=== PATIENT | male | born 1975 | race Caucasian/White ===

== ENCOUNTER 2016-06-11 04:18 | Day surgery (SDC) | payer BC ==
[2016-06-05 10:28] LABS: BASOPHILS 0.6 %; BASOPHILS ABSOLUTE 0.04 10/3/uL (0.0-0.16); EOSINOPHILS 2.9 %; EOSINOPHILS ABSOLUTE 0.19 10/3/uL (0.0-0.53); HEMATOCRIT 43.6 % (40.0-51.0); HEMOGLOBIN 14.7 g/dL (13.6-17.8); LYMPHOCYTES 31.7 %; LYMPHOCYTES ABSOLUTE 2.08 10/3/uL (0.67-4.30); MEAN CORPUS HGB CONC 33.7 g/dL (32.0-36.0); MEAN CORPUSCULAR HEMOGLOB 31.7 pg (26.0-34.0); MEAN CORPUSCULAR VOLUME 94.2 fL (80-100); MEAN PLATELET VOLUME 9.2 fL (9.2-13.0); MONOCYTES ABSOLUTE 0.46 10/3/uL (0.21-1.20); NEUTROPHILS 57.8 %; NEUTROPHILS ABSOLUTE 3.79 10/3/uL (2.02-8.40); PLATELET COUNT 204 10/3/uL (150-400); RBC DISTRIBUTION WIDTH 13.6 % (12.0-16.0); RED CELL COUNT 4.63 10/6/uL (4.7-6.1); WHITE BLOOD CELLS 6.6 10/3/uL (4.5-10.5)
[2016-06-05 10:30] LABS: MANUAL DIFF NO %
--- NOTE | ~2016-06-11 | OP ---
Record Of Operation [facility] [address] [place]. [address] NAME: KELSEA SANTOS : 75 STATUS : REG [facility] [place] PAT#: [id number] AGE: 40 ADM/REG DATE : 06/11/16 MR#: [id number] REPORT SERV DATE: 06/11/16 DICTATED BY: TOAN GRAVES DATE: 06/11/16 REPORT STATUS : Draft TRANSCRIBED BY: MODL DATE: 06/11/16 DATE OF PROCEDURE: 06/11/2016 PREOPERATIVE DIAGNOSIS: Symptomatic right inguinal hernia. POSTOPERATIVE DIAGNOSIS: Symptomatic indirect right inguinal hernia. OPERATION PERFORMED: Laparoscopic preperitoneal right inguinal hernia repair with Bard 3DMax mesh. SURGEON: Toan Graves M.D. ANESTHESIA: General. ESTIMATED BLOOD LOSS: Less than 10 mL. IV FLUIDS: Adequate. INDICATION FOR PROCEDURE: Mr. Santos is a 40-year-old gentleman who has developed a symptomatic right inguinal hernia. He has requested repair. Risks and benefits of the procedure and types of repair were discussed. He has opted for a laparoscopic preperitoneal repair. DESCRIPTION OF OPERATION: After appropriate sedation, the patient was prepped and draped in proper sterile fashion. The skin and subcutaneous tissues below the umbilicus were infiltrated with local anesthesia. A similar incision was made below the umbilicus. The subcutaneous tissues were incised down to anterior rectus fascia. The anterior rectus fascia was incised transversely. The right rectus muscle was elevated and a Gabriela clamp was used to dissect into the preperitoneal space. A dissecting balloon was placed in the preperitoneal space and insufflated. This balloon was removed. A structural balloon was placed in the preperitoneal space and insufflated to 15 mmHg. We then placed two lower midline 5 mm trocars under direct visualization after obtaining local anesthesia in standard fashion. He had a very good dissection. We dissected out the wispy tissues around the Hesselbach's triangle. There was no evidence of a direct inguinal hernia. We dissected out the spermatic cord. There was a large cord lipoma entering a dilated internal ring. This was dissected out and reduced. There was no evidence of peritoneal sac entering the internal ring. At this point, we had excellent visualization of our anatomy. A piece of Bard 3DMax mesh was cut to fit with a slit on the inferior aspect and fashioned around the spermatic cord. It was secured to Deyvi's ligament using the Securestrap, placed another tack superiorly and medially. A third tack was placed superiorly and laterally. This gave us good coverage of Hesselbach's triangle as well as a reconstructed internal ring. We instilled 20 mL of Marcaine into the preperitoneal space. We desufflated the preperitoneal space under direct visualization, watching the mesh lay up against the abdominal wall. Trocars were then removed. The fascia was closed using 0 Vicryl suture. The skin was closed using a running 4-0 Monocryl suture. Steri-Strips and dressings were then placed. The patient was taken to the recovery room in satisfactory condition. Record Of Operation [address] [place]. [address] NAME: KELSEA SANTOS : 75 STATUS : REG [facility] [place] PAT#: [id number] AGE: 40 ADM/REG DATE : 06/11/16 MR#: [id number] REPORT SERV DATE: 06/11/16 DICTATED BY: TOAN GRAVES DATE: 06/11/16 REPORT STATUS : Draft TRANSCRIBED BY: URIAH DATE: 06/11/16 NOLAN/URIAH Toan Graves M.D. / [id number] CC: Toan Graves M.D.
== END 2016-06-11 13:32 | disposition home or self-care (01) ==
LOC: SDC 04:18
PROVIDERS: Specialist
PROC: 0YU54JZ Supplement Right Inguinal Region with Synthetic Substitute, Percutaneous Endoscopic Approach (ICD-10-PCS; principal; 2016-06-11 05:45)
DX: K40.90 Unilateral inguinal hernia, without obstruction or gangrene, not specified as recurrent (principal); M16.12 Unilateral primary osteoarthritis, left hip; M17.12 Unilateral primary osteoarthritis, left knee; Z90.89 Acquired absence of other organs; Z98.890 Other specified postprocedural states
CPT/HCPCS: 85025; A9270-GY; C1713; C1726; C1781; J0690; J2175; J2250; J2405; J2710; J3010